=== PATIENT | male | born 1990 | race Hispanic/Latino ===

== ENCOUNTER 2021-12-13 16:53 | Emergency (ER) | payer MEDICAID ==
--- NOTE | 2021-12-13 19:41 | Emergency Department Report ---
ED Extremity Problem HPI - General Chief complaint: Extremity Problem,Nontraumatic Stated complaint: LEFT WRIST PAIN/NUMBNESS Time Seen by Provider: 12/13/21 19:36 Source: patient Mode of arrival: Ambulatory Limitations: No Limitations - History of Present Illness Initial comments: Patient is a 31-year-old male presents emergency room complaints of left wrist pain that began 1 month ago. He states he also gets some numbness and weakness in his left wrist. Patient states that he saw a program management specialist and had an MRI performed of his neck and reports that it was normal. He has not seen a web application dev specialist for his wrist. He denies any fall or injury. He denies any swelling, fever, chills, vomiting, diarrhea. Patient states he has a past m edical history of elevated liver enzymes. No allergies to medications. - Related Data Previous Rx's Medication Instructions Recorded Last Taken Type Gabapentin 100 mg PO TID #21 capsule 12/13/21 Unknown Rx Naproxen 375 mg PO BID PRN #20 tab 12/13/21 Unknown Rx Allergies Allergy/AdvReac Type Severity Reaction Status Date / Time No Known Allergies Allergy Unverified 12/13/21 17:12 ED Review of Systems ROS: Stated complaint: LEFT WRIST PAIN/NUMBNESS Other details as noted in HPI Comment: All other systems reviewed and negative ED Past Medical Hx - Medications Home Medications: Home Medications Medication Instructions Recorded Confirmed Last Taken Type Gabapentin 100 mg PO TID #21 capsule 12/13/21 Unknown Rx Naproxen 375 mg PO BID PRN #20 tab 12/13/21 Unknown Rx ED Physical Exam - General Limitations: No Limitations General appearance: alert, in no apparent distress - Head Head exam: Present: atraumatic, normocephalic - Eye Eye exam: Present: normal appearance - ENT ENT exam: Present: mucous membranes moist - Extremities Exam Extremities exam: Present: other (appears to have wrist drop of the left wrist, no edema, no erythema, full passive ROM, no skin changes, 2+ distal pulses, sensation intact) - Neurological Exam Neurological exam: Present: alert, oriented X3 - Psychiatric Psychiatric exam: Present: normal affect, normal mood - Skin Skin exam: Present: warm, dry, intact ED Course Vital Signs 12/13/21 12/13/21 17:14 20:39 Temperature 98 F 97.8 F Pulse Rate 89 77 Respiratory 16 18 Rate Blood Pressure 113/58 118/65 [Right] O2 Sat by Pulse 98 98 Oximetry ED Medical Decision Making - Medical Decision Making Patient is a 31-year-old male presents emergency room complaints of left wrist pain that began 1 month ago. He states he also gets some numbness and weakness in his left wrist. Patient states that he saw a program management specialist and had an MRI performed of his neck and reports that it was normal. He has not seen a web application dev specialist for his wrist. He denies any fall or injury. He denies any swelling, fever, chills, vomiting, diarrhea. Patient states he has a past medical history of elevated liver enzymes. No allergies to medications. vss. on exam: appears to have wrist drop of the left wrist, no edema, no erythema, full passive ROM, no skin changes, 2+ distal pulses, sensation intact. pt has had no trauma. he has no clinical signs of septic joint. pt given velcro wrist splint. advised pt Please take medication as prescribed as needed. Follow-up with a web application dev specialist. It is very important that you follow-up. Return to emergency room for any new or worsening symptoms. Critical care attestation.: If time is entered above; I have spent that time in minutes in the direct care of this critically ill patient, excluding procedure time. ED Disposition Clinical Impression: Wrist drop Qualifiers: Laterality: left Qualified Code(s): M21.332 - Wrist drop, left wrist Disposition: 01 HOME / SELF CARE / HOMELESS Is pt being admited?: No Does the pt Need Aspirin: No Condition: Stable Instructions: Radial Nerve Palsy Additional Instructions: Please take medication as prescribed as needed. Follow-up with a web application dev specialist. It is very important that you follow-up. Return to emergency room for any new or worsening symptoms. Prescriptions: Gabapentin 100 mg PO TID #21 capsule Naproxen 375 mg PO BID PRN #20 tab PRN Reason: pain Referrals: JAMAL THOMSON MD [Staff Physician] - 3-5 Days [facility] [Provider Group] - 3-5 Days Time of Disposition: 19:40 Print Language: DIVEHI
[2021-12-13 20:40] VITALS: BP 118/65
== END 2021-12-13 20:32 | disposition home or self-care (01) ==
LOC: ED 16:53
DX: M21.332 Wrist drop, left wrist (principal); Z79.899 Other long term (current) drug therapy
CPT/HCPCS: 99282; 99283